=== PATIENT | female | born 1985 | race Caucasian/White ===

== ENCOUNTER 2024-03-16 15:22 | Emergency (ER) | payer OTHER ==
[~2024-03-16] VITALS: Ht 170.2 cm; Wt 73.9 kg
[2024-03-16] MEDS: KETOROLAC TROMETHAMINE 15 MG/ML VIAL IM ONE (16:00)
[2024-03-16] MEDS ORDERED: KETOROLAC TROMETHAMINE 15 MG/ML VIAL ONE (16:01)
[2024-03-16] MEDS ORDERED: LIDOCAINE 5% (PATCH) 1 EA PATCH TP ONE (16:01)
[2024-03-16] MEDS ORDERED: CYCLOBENZAPRINE 10 MG TABLET ONE (16:02)
[2024-03-16] MEDS ORDERED: ACETAMINOPHEN ES 500 MG TABLET ONE (16:02)
[2024-03-16] MEDS: CYCLOBENZAPRINE 10 MG TABLET PO ONE (16:06)
[2024-03-16] MEDS: LIDOCAINE 5% (PATCH) 1 EA PATCH TP SCH (16:06)
[2024-03-16] MEDS: ACETAMINOPHEN ES 500 MG TABLET PO ONE (16:06)
[2024-03-16] MEDS ORDERED: CYCL10TA9 PO (18:24)
[2024-03-16] MEDS ORDERED: ACET-2605 PO (18:24)
[2024-03-16] MEDS ORDERED: LIDO30AD10 TP (18:25)
[2024-03-16] MEDS ORDERED: IBUP-1957 PO (18:25)
[2024-03-16 18:38] VITALS: BP 128/77; TEMP 98.2; O2SAT 98
== END 2024-03-16 18:38 | disposition home or self-care (01) ==
LOC: ER 15:25
DX: S29.8XXA Other specified injuries of thorax, initial encounter (principal); M54.6 Pain in thoracic spine; R10.2 Pelvic and perineal pain; Z79.899 Other long term (current) drug therapy; W01.0XXA Fall on same level from slipping, tripping and stumbling without subsequent striking against object, initial encounter; Y93.89 Activity, other specified; Y92.89 Other specified places as the place of occurrence of the external cause; Y99.8 Other external cause status
CPT/HCPCS: 99284; 96372; 71100; 36415; 84702; J1885